=== PATIENT | female | born 1955 | race Caucasian/White ===

== ENCOUNTER 2017-03-18 10:14 | Outpatient (CLI) | payer OTHER ==
[~2017-03-18 10:14] MED LIST: BAYER ASPIRIN325 MG; FENOGLIDE40 MG; SYNTHROID75 MCG
== END 2017-03-18 10:23 | disposition home or self-care (01) ==
LOC: NUCLEAR 10:14
DX: M85.80 Other specified disorders of bone density and structure, unspecified site (principal)

== ENCOUNTER 2017-08-30 12:12 | Outpatient (CLI) | payer OTHER | END 2017-08-30 12:18 | disposition home or self-care (01) | LOC: SONOGRAMA 12:12 → MAMO-SONO 09-02 07:45 | DX: E04.1 Nontoxic single thyroid nodule (principal) ==

== ENCOUNTER 2018-04-19 10:02 | Outpatient (CLI) | payer OTHER | END 2018-04-19 10:14 | disposition home or self-care (01) | LOC: SONOGRAMA 10:02 → MAMO-SONO 11:15 | DX: R31.29 Other microscopic hematuria (principal); R33.8 Other retention of urine ==

== ENCOUNTER 2019-04-09 13:49 | Outpatient (CLI) | payer OTHER | END 2019-04-09 14:43 | disposition home or self-care (01) | LOC: NUCLEAR 13:49 | DX: M85.89 Other specified disorders of bone density and structure, multiple sites (principal); Z13.820 Encounter for screening for osteoporosis ==

== ENCOUNTER 2022-08-17 12:39 | Emergency (ER) | payer OTHER ==
[~2022-08-17] VITALS: Ht 152.4 cm; Wt 58.5 kg
[2022-08-17] MEDS ORDERED: CALTRATE 600+D1 EAC1 (13:54)
[2022-08-17] MEDS ORDERED: FOSAMAX70 MG (13:54)
[2022-08-17] MEDS ORDERED: SYNTHROID50 MCG PO (13:55)
[2022-08-17] MEDS ORDERED: PREDNISONE20 MG (13:55)
== END 2022-08-17 16:32 | disposition home or self-care (01) ==
LOC: ER 12:39
DX: J06.9 Acute upper respiratory infection, unspecified (principal); I10 Essential (primary) hypertension; E03.9 Hypothyroidism, unspecified

== ENCOUNTER 2022-08-18 16:32 | Outpatient (CLI) | payer OTHER ==
[~2022-08-18 16:32] MED LIST changes: +CALTRATE 600+D1 EAC1; +FOSAMAX70 MG; +PREDNISONE20 MG; +SYNTHROID50 MCG PO
== END 2022-08-18 17:00 | disposition home or self-care (01) ==
LOC: RAD 16:32
PROVIDERS: ATTEND Internal Medicine
DX: J44.1 Chronic obstructive pulmonary disease with (acute) exacerbation (principal)

== ENCOUNTER → 2025-01-01 | Outpatient (CLI) | payer OTHER | END | disposition home or self-care (01) | LOC: SONOGRAMA 10:01 | PROVIDERS: ATTEND Specialist | DX: M25.511 Pain in right shoulder (principal); M75.111 Incomplete rotator cuff tear or rupture of right shoulder, not specified as traumatic; M75.41 Impingement syndrome of right shoulder ==